=== PATIENT | female | born 1980 | race Native Hawaiian/Other Pacific Islander ===

== ENCOUNTER 2017-09-14 10:48 | Emergency (ER) | payer OTHER ==
[~2017-09-14] VITALS: Ht 172.7 cm; Wt 104.3 kg
[~2017-09-14 10:48] MED LIST: ADDERALL30 MG PO; AMBIEN5 MG PO; LEXAPRO20 MG PO; SIMV20TA2 PO
[2017-09-14 10:56] VITALS: BP 139/82; TEMP 97.9
== END 2017-09-14 11:35 | disposition home or self-care (01) ==
LOC: ED 10:48
DX: H57.12 Ocular pain, left eye (principal)
CPT/HCPCS: 99282

== ENCOUNTER 2017-12-05 07:31 | Outpatient (CLI) | payer BC | END 2017-12-05 19:02 | LOC: RESP 07:31 | DX: R00.0 Tachycardia, unspecified (principal); R01.0 Benign and innocent cardiac murmurs; I10 Essential (primary) hypertension | CPT/HCPCS: 93005 ==

== ENCOUNTER 2020-04-02 15:12 | Emergency (ER) | payer BC, OTHER ==
[~2020-04-02] VITALS: Ht 172.7 cm; Wt 98.0 kg
[2020-04-02 15:51] LABS: PLATELET COUNT 291 K/uL (152-353)
[2020-04-02 16:00] LABS: POTASSIUM 3.3 mmol/L (3.6-5.2); SODIUM 141 mmol/L (136-145)
[2020-04-02 16:06] LABS: PARTIAL THROMBOPLASTIN TIME 25.4 SECONDS (24.5-33.6)
[2020-04-02 17:53] VITALS: BP 109/59; TEMP 98.7
== END 2020-04-02 17:53 | disposition home or self-care (01) ==
LOC: ED 15:12
PROVIDERS: Hospitalist
DX: U07.1 COVID-19 (principal); J06.9 Acute upper respiratory infection, unspecified; R50.9 Fever, unspecified
CPT/HCPCS: 36600; 80053; 82805; 83880; 84484; 85027; 85610; 85730; 93005; 94664; 96360; 96375; 99284; J1100; J2405

== ENCOUNTER 2021-03-12 17:51 | Outpatient (CLI) | payer BC | END 2021-03-12 18:57 | disposition home or self-care (01) | LOC: LABW 17:51 | PROVIDERS: ATTEND Podiatrist | DX: B35.1 Tinea unguium (principal) | CPT/HCPCS: 36415; 84450; 84460 ==

== ENCOUNTER 2021-10-14 23:40 | Emergency (ER) | payer BC ==
[~2021-10-14] VITALS: Ht 172.7 cm; Wt 110.7 kg
[2021-10-14] MEDS ORDERED: OZEMPIC2 MG/1.5 M SC (23:58)
[2021-10-14] MEDS ORDERED: METO-837 PO (23:59)
[2021-10-14] MEDS ORDERED: EZETIMIBE10 MG PO (23:59)
[2021-10-15 00:38] LABS: POTASSIUM 3.9 mmol/L (3.6-5.2)
[2021-10-15 00:46] LABS: PLATELET COUNT 311 K/uL (152-353)
[2021-10-15 02:35] VITALS: BP 104/48; TEMP 98.6
== END 2021-10-15 02:35 | disposition home or self-care (01) ==
LOC: ED 23:40
PROVIDERS: Hospitalist
DX: K57.32 Diverticulitis of large intestine without perforation or abscess without bleeding (principal)
CPT/HCPCS: 36415; 80053; 81002; 81025; 83690; 85027; 96360; 96365; 96375; 99284; J1885; J2270; J2405; J3490